=== PATIENT | male | born 1965 | race Caucasian/White ===

== ENCOUNTER 2020-08-17 09:40 | Emergency (ER) | payer BC ==
--- NOTE | 2020-08-17 11:29 | EDM.PDOC ---
ED HPI GENERAL MEDICAL PROBLEM - General Chief Complaint: Chest Pain Stated Complaint: CHEST PAIN AND LT ARM PAIN Time Seen by Provider: 08/17/20 11:10 Source of Information: Reports: Patient, RN Notes Reviewed History Limitations: Reports: No Limitations - History of Present Illness INITIAL COMMENTS - FREE TEXT/NARRATIVE: Patient is a 55-year-old male who presents to the ED for his left-sided chest discomfort and arm discomfort. The patient notes that he does do some light cardio exercises every morning to include push-ups, etc. He states that on Thursday, he felt like his heart rate was a little higher than it normally gets. He states he feels like his heart rate is usually in the 60s, but after his workout his heart rate stayed somewhere in the 80s or 90s, and this seemed to be concerning for him. He thought that his heart felt a little "irregular in his chest". He states he felt like a double heartbeat. He notes today however he is having some discomfort in his left upper chest and some numbness and tingling into his left arm. He states he just feels different than the right arm, and this has him concerned. Patient denies any other sick-like symptoms, fever/chills, cough/shortness of breath, nausea/vomiting/diarrhea. He notes that his mother has had issues with an irregular heartbeat from time to time, he states that at times her heart rate was too slow, and then too fast. He states that he is trying to eat healthy so does not think he is dehydrated. He takes only multivitamin and a fish oil on a regular basis. His primary care provider is Dr. Chris Kaufman. Chest Pain Score (Numeric/FACES): 1 - Related Data Allergies Allergy/AdvReac Type Severity Reaction Status Date / Time No Known Allergies Allergy Verified 08/17/20 09:49 Home Meds: Home Meds . [No Known Home Meds] 08/17/20 [History] Past Medical History - Past Health History Medical/Surgical History: Denies Medical/Surgical History Social & Family History - Tobacco Use Tobacco Use Status *Q: Never Tobacco User - Caffeine Use Caffeine Use: Reports: None - Recreational Drug Use Recreational Drug Use: No ED ROS GENERAL - Review of Systems Review Of Systems: Comprehensive ROS is negative, except as noted in HPI. ED EXAM, GENERAL - Physical Exam Exam: See Below Exam Limited By: No Limitations General Appearance: Alert, WD/WN, No Apparent Distress Nose: Normal Inspection Throat/Mouth: Normal Inspection, Normal Lips, Normal Teeth, Normal Gums, Normal Oropharynx, Normal Voice, No Airway Compromise Respiratory/Chest: No Respiratory Distress, Lungs Clear, Normal Breath Sounds, No Accessory Muscle Use, Other (Left chest tender to 3rd rib distribution; states that this does reproduce some of the discomfort he was experiencing) Cardiovascular: Normal Peripheral Pulses, Regular Rate, Rhythm, No Edema, No Murmur Extremities: Normal Inspection, Normal Capillary Refill Neurological: Alert, Oriented, Normal Cognition, No Motor/Sensory Deficits Psychiatric: Normal Affect, Normal Mood Skin Exam: Warm, Dry, Intact, Normal Color, No Rash #1 Interpretation EKG Date: 08/17/20 Time: 09:49 Rhythm: NSR Rate (Beats/Min): 60 [place]: Normal P-Wave: Present (possible left sided atrial hypertrophy) QRS: Normal ST-T: Normal QT: Normal Comparison: NA - No Prior EKG EKG Interpretation Comments: No obvious ischemia or acute ST changes noted, reviewed by myself and Dr. Cameron. Course - Vital Signs Last Recorded V/S: Last Vital Signs Temp 97.2 F 08/17/20 09:49 Pulse 60 08/17/20 09:49 Resp 16 08/17/20 09:49 BP 128/63 08/17/20 09:49 Pulse Ox 100 08/17/20 09:49 - Orders/Labs/Meds Orders: Active Orders 24 hr Category Date Time Status Holter Monitor 48 Hours [RC] .PRN Care 08/17/20 11:22 Ordered Chest 1V Frontal [CR] Stat Exams 08/17/20 11:10 Ordered Labs: Laboratory Tests 08/17/20 08/17/20 Range/Units 09:55 09:55 WBC 6.37 (4.23-9.07) K/mm3 RBC 4.85 (4.63-6.08) M/mm3 Hgb 14.8 (13.7-17.5) gm/dl Hct 42.7 (40.1-51.0) % MCV 88.0 (79.0-92.2) fl MCH 30.5 (25.7-32.2) pg MCHC 34.7 (32.2-35.5) g/dl RDW Std Deviation 39.9 (35.1-43.9) fL Plt Count 211 (163-337) K/mm3 MPV 10.3 (9.4-12.3) fl Neut % (Auto) 58.6 (34.0-67.9) % Lymph % (Auto) 26.7 (21.8-53.1) % [place] % (Auto) 13.2 H (5.3-12.2) % Eos % (Auto) 1.1 (0.8-7.0) Baso % (Auto) 0.2 (0.1-1.2) % Neut # (Auto) 3.74 (1.78-5.38) K/mm3 Lymph # (Auto) 1.70 (1.32-3.57) K/mm3 [place] # (Auto) 0.84 H (0.30-0.82) K/mm3 Eos # (Auto) 0.07 (0.04-0.54) K/mm3 Baso # (Auto) 0.01 (0.01-0.08) K/mm3 Sodium 139 (136-145) mEq/L Potassium 3.9 (3.5-5.1) mEq/L Chloride 103 (98-107) mEq/L Carbon Dioxide 27 (21-32) mEq/L Anion Gap 12.9 (5-15) BUN 27 H (7-18) mg/dL Creatinine 0.9 (0.7-1.3) mg/dL Est Cr Clr Drug Dosing 108.23 mL/min Estimated GFR (MDRD) > 60 (>60) mL/min BUN/Creatinine Ratio 30.0 H (14-18) Glucose 102 (74-106) mg/dL Calcium 9.3 (8.5-10.1) mg/dL Total Bilirubin 0.7 (0.2-1.0) mg/dL AST 25 (15-37) U/L ALT 47 (16-63) U/L Alkaline Phosphatase 60 (46-116) U/L Troponin I < 0.017 (0.00-0.056) ng/mL Total Protein 7.6 (6.4-8.2) g/dl Albumin 4.0 (3.4-5.0) g/dl Globulin 3.6 gm/dL Albumin/Globulin Ratio 1.1 (1-2) - Re-Assessments/Exams Free Text/Narrative Re-Assessment/Exam: 08/17/20 11:27 Patient presents to the ED for evaluation of his chest pain. Labs were ordered by nursing staff at triage time due to census in the ER. EKG was obtained, demonstrates normal sinus rhythm with some T wave inversion in V1 and V2, and possible left atrial hypertrophy. This was reviewed by myself and Dr. Cameron. Departure - Departure Time of Disposition: 11:29 Disposition: Home, Self-Care 01 Condition: Good Clinical Impression: Palpitations with regular cardiac rhythm, Chest pain, atypical Instructions: Chest Wall Pain, [id number], Palpitations, [id number] Referrals: Chris Kaufman Jr, MD [Primary Care Provider] - Additional Instructions: You were evaluated in the ER today for your chest discomfort/left arm discomfort, and the feelings of your heart rate being irregular. Your chest x-ray, EKG, and laboratory evaluation was all within normal limits today. You do not have any signs of a heart attack at today's visit. You have been sent home with a Holter monitor to monitor your heart rate for the next 48 hours, I recommend you follow-up with your primary care provider, Dr. Kaufman roughly a week to 10 days after you turn the Holter monitor back in to go over these results, and talk about the possibility of getting further cardiac testing like stress test, and/or echocardiogram if he deems it warranted. The left arm discomfort may likely be due to nerve irritation along the chest wall, if this is bothersome for you, you may take 600 mg ibuprofen every 6 hours as needed for further discomfort. Do not exceed 3200 mg ibuprofen in a 24-hour time span. Please return to the ER at any time however if your symptoms seem to change or worsen. Sepsis Event Note (ED) - Evaluation Sepsis Screening Result: No Definite Risk - Focused Exam Vital Signs: Vital Signs Temp Pulse Resp BP Pulse Ox 08/17/20 09:49 97.2 F 60 16 128/63 100 - My Orders Last 24 Hours: My Active Orders 08/17/20 11:10 Chest 1V Frontal [CR] Stat 08/17/20 11:22 Holter Monitor 48 Hours [RC] .PRN - Assessment/Plan Last 24 Hours: My Active Orders 08/17/20 11:10 Chest 1V Frontal [CR] Stat 08/17/20 11:22 Holter Monitor 48 Hours [RC] .PRN
--- NOTE | 2020-08-17 13:28 | CR ---
PROCEDURE INFORMATION: Exam: XR Chest, 1 View Exam date and time: 08/17/2020 10:57 AM Age: 55 years old Clinical indication: Chest pain TECHNIQUE: Imaging protocol: XR of the chest Views: 1 view. COMPARISON: No relevant prior studies available. FINDINGS: Lungs: Unremarkable. No consolidation. Pleural space: Unremarkable. No pleural effusion. No pneumothorax. Heart/Mediastinum: Unremarkable. No cardiomegaly. Bones/joints: Unremarkable. IMPRESSION: No acute findings. Thank you for allowing us to participate in the care of your patient. Dictated and Authenticated by: Ed Fermin DO 08/17/2020 2:10 PM Central Time ([place] & [place]) [place]
== END 2020-08-17 12:20 | disposition home or self-care (01) ==
LOC: JD.ED 09:40
DX: R07.89 Other chest pain (principal); R00.2 Palpitations
CPT/HCPCS: 36415; 71045; 71045-26; 80053; 84484; 85025; 93010; 93225; 93226; 99284; 99285-25